=== PATIENT | male | born 1985 | race Native Hawaiian/Other Pacific Islander ===

== ENCOUNTER 2023-02-03 03:47 | Emergency (ER) | payer OTHER ==
[~2023-02-03] VITALS: Ht 188 cm; Wt 110.7 kg
[2023-02-03 05:15] VITALS: BP 140/86
== END 2023-02-03 05:15 | disposition home or self-care (01) ==
LOC: EDSEX 03:47 → ED 03:47
PROC: 08C0XZZ Extirpation of Matter from Right Eye, External Approach (ICD-10-PCS; principal; 2023-02-03)
DX: S05.01XA Injury of conjunctiva and corneal abrasion without foreign body, right eye, initial encounter (principal); T15.91XA Foreign body on external eye, part unspecified, right eye, initial encounter; X58.XXXA Exposure to other specified factors, initial encounter; F17.210 Nicotine dependence, cigarettes, uncomplicated
CPT/HCPCS: 99283